=== PATIENT | male | born 1985 | race Caucasian/White ===

== ENCOUNTER 2021-11-26 23:39 | Emergency (ER) | payer BC ==
[~2021-11-26] VITALS: Ht 177.8 cm; Wt 77.1 kg
[2021-11-26] MEDS ORDERED: ASPIRIN 81 MG CHEW TAB PO ONE (23:45)
[2021-11-26 23:57] LABS: BASOPHILS # (AUTO) 0.1 (0.0-0.1); EOSINOPHILS # (AUTO) 0.2 (0.0-0.4); EOSINOPHILS % 2.9 % (0.0-6.0); HEMATOCRIT 45.5 % (38.2-49.6); HEMOGLOBIN 14.8 g/dL (14.0-18.0); LYMPHOCYTES # (AUTO) 3.7 (1.0-3.2); LYMPHOCYTES % 43.8 % (18.0-39.1); MEAN CORPUSCULAR HEMOGLOBIN 28.5 pg (28-32); MEAN CORPUSCULAR HGB CONC 32.5 g/dL (31-35); MEAN CORPUSCULAR VOLUME 87.7 fL (81-99); MONOCYTES # (AUTO) 0.6 (0.2-0.8); MONOCYTES % 7.1 % (4.4-11.3); NEUTROPHILS # (AUTO) 3.8 (2.1-6.9); PLATELET COUNT 277 x10e3/uL (140-360); RED BLOOD COUNT 5.19 x10e6/uL (4.3-5.7); RED CELL DISTRIBUTION WIDTH 12.2 % (11.7-14.4)
[2021-11-27 00:28] LABS: AMPHETAMINES SCREEN,URINE NEGATIVE (NEGATIVE); BENZODIAZEPINES SCREEN,URINE NEGATIVE (NEGATIVE); PHENCYCLIDINE SCREEN,URINE NEGATIVE (NEGATIVE)
[2021-11-27 00:31] LABS: ALANINE AMINOTRANSFERASE 50 IU/L (0-55); ALBUMIN 3.8 g/dL (3.5-5.0); ALBUMIN/GLOBULIN RATIO 1.1 (0.8-2.0); ALKALINE PHOSPHATASE 104 IU/L (40-150); ANION GAP 15.5 mmol/L (8-16); BLOOD UREA NITROGEN 29 mg/dL (7-26); BUN/CREATININE RATIO 14 (6-25); CALCIUM 9.8 mg/dL (8.4-10.2); CARBON DIOXIDE 26 mmol/L (22-29); CHLORIDE 102 mmol/L (98-107); CREATINE KINASE 167 IU/L (30-200); CREATININE, SERUM 2.06 mg/dL (0.72-1.25); EST GLOMERULAR FILTRATION RATE 37 ML/MIN (60-); GLUCOSE 167 mg/dL (74-118); POTASSIUM 3.5 mmol/L (3.5-5.1); SODIUM 140 mmol/L (136-145)
[2021-11-27 01:11] VITALS: BP 124/88
== END 2021-11-27 01:12 | disposition home or self-care (01) ==
LOC: ER 23:52
DX: R07.9 Chest pain, unspecified (principal); R79.82 Elevated C-reactive protein (CRP); Q61.3 Polycystic kidney, unspecified
CPT/HCPCS: 36415; 71045; 80053; 80307; 82550; 82553; 83690; 83880; 84484; 85025; 85379; 93005; 99283